=== PATIENT | female | born 1930 | race Caucasian/White ===

== ENCOUNTER 2017-10-03 17:08 | Inpatient (IN) | payer MEDICARE ==
[~2017-10-03] VITALS: Ht 162.6 cm; Wt 68.5 kg
[2017-10-03 18:00] VITALS: BP 121/50
[2017-10-03] MEDS ORDERED: OxyCODONE HCL 5 MG IR TABLET PO PRN (18:30)
[2017-10-03] MEDS ORDERED: TRIAMCINOLONE ACET 55 MCG/SPRAY 16.9 ML NASAL SPRAY NASAL PRN (18:30)
[2017-10-03] MEDS: HYDROCORTISONE 1% 30 GM OINTMENT TP SCH ×2 (21:00→21:51)
[2017-10-03] MEDS ORDERED: ATORVASTATIN CALCIUM 10 MG TABLET PO SCH (21:00)
[2017-10-03] MEDS: LATANOPROST 0.005% 2.5 ML OPHTHALMIC SOLUTION OU SCH (21:48)
[2017-10-03 21:49] LABS: GLUCOMETER DEV NAME(LOC) 2WR 1B; GLUCOSE,POINT OF CARE 103 MG/DL (70-110)
[2017-10-03] MEDS: DORZOLAMIDE HCL 2% 10 ML OPHTHALMIC SOLUTION OD SCH (21:49)
[2017-10-03] MEDS: ACETAMINOPHEN 500 MG TABLET PO SCH (21:49)
[2017-10-03] MEDS: GABAPENTIN 100 MG CAPSULE PO SCH (21:49)
[2017-10-03] MEDS: FAMOTIDINE 20 MG TABLET PO SCH (21:50)
[2017-10-03] MEDS: SENNA 187 MG TABLET PO SCH (21:50)
[2017-10-03] MEDS: CETIRIZINE HCL 10 MG TABLET PO SCH (21:50)
[2017-10-03] MEDS: ATORVASTATIN CALCIUM 10 MG TABLET PO SCH (21:50)
[2017-10-03] MEDS: DOCUSATE SODIUM 100 MG CAPSULE PO SCH (21:50)
[2017-10-03 22:53] LABS: GLUCOMETER DEV NAME(LOC) 2WR 2E; GLUCOSE,POINT OF CARE 135 MG/DL (70-110)
[2017-10-04 01:06] VITALS: BP 95/64
[2017-10-04] MEDS: OxyCODONE HCL 5 MG IR TABLET PO PRN ×3 (01:06→23:41)
[2017-10-04 01:26] LABS: APPEARANCE,URINE CLEAR (CLEAR); BILIRUBIN,URINE NEGATIVE (NEGATIVE); GLUCOSE, URINE (UA) NEGATIVE (NEGATIVE); KETONES,URINE NEGATIVE (NEGATIVE); LEUKOCYTE ESTERASE ,URINE TRACE (NEGATIVE); NITRATE,URINE NEGATIVE (NEGATIVE); OCCULT BLOOD,URINE NEGATIVE (NEGATIVE); PROTEIN,URINE NEGATIVE (NEGATIVE); UROBILINOGEN,URINE 0.2 mg/dL (<=1.0)
[2017-10-04 01:55] LABS: BACTERIA,URINE Rare /HPF (None Seen); RBC,URINE 0-2 /HPF (0-2); SQUAMOUS EPITHELIAL CELL,UR Few /LPF (None Seen)
[2017-10-04] MEDS ORDERED: OxyCODONE HCL 5 MG IR TABLET PO PRN ×2 (02:45→06:45)
[2017-10-04] MEDS ORDERED: DEXTROSE 50%-WATER 25 GM/50 ML SYRINGE IVP PRN (03:45)
[2017-10-04] MEDS: FUROSEMIDE 40 MG TABLET PO SCH ×2 (06:12→10:36)
[2017-10-04] MEDS: LEVOTHYROXINE SODIUM 88 MCG TABLET PO SCH (06:12)
[2017-10-04] MEDS: ACETAMINOPHEN 500 MG TABLET PO SCH ×3 (06:12→20:20)
[2017-10-04 06:24] LABS: GLUCOMETER DEV NAME(LOC) 2WR 2E; GLUCOSE,POINT OF CARE 87 MG/DL (70-110)
[2017-10-04 08:01] VITALS: BP 127/70
[2017-10-04 08:40] LABS: BASOPHILS % (AUTO) 0.4 % (0.0-2.0); EOSINOPHILS % (AUTO) 1.3 % (1.0-6.0); HEMATOCRIT 27.3 % (36-46); HEMOGLOBIN 9.2 g/dL (12.0-16.0); LYMPHOCYTES # (AUTO) 2.6 K/uL (1.0-4.8); MEAN CORPUSCULAR HEMOGLOBIN 32.8 pg (26.0-34.0); MEAN CORPUSCULAR HGB CONC 33.8 G/dL (31.0-37.0); MEAN CORPUSCULAR VOLUME 97 fL (80-100); MONOCYTES % (AUTO) 11.5 % (2.0-9.0); NEUTROPHILS # (AUTO) 4.9 K/uL (1.8-7.7); NEUTROPHILS % (AUTO) 56.8 % (40.0-70.0); PLATELET COUNT (AUTO) 226 K/uL (150-450); RED BLOOD CELL COUNT(AUTO) 2.82 MIL/uL (4.00-5.20); RED CELL DISTRIBUTION WIDTH 12.7 % (11.5-14.5)
[2017-10-04] MEDS ORDERED: RIVAROXABAN 10 MG TABLET PO SCH ×2 (09:00→17:00)
[2017-10-04 09:11] LABS: ALBUMIN 2.4 g/dL (3.4-5.0); BILIRUBIN,TOTAL 0.5 mg/dL (0.1-1.0); CALCIUM, TOTAL 8.4 mg/dL (8.8-10.5); CREATININE 1.27 mg/dL (0.60-1.30); POTASSIUM 4.1 mmol/L (3.5-5.1); TOTAL PROTEIN, SERUM 5.7 g/dL (6.4-8.2)
[2017-10-04] MEDS: DOCUSATE SODIUM 100 MG CAPSULE PO SCH ×2 (09:37→20:21)
[2017-10-04] MEDS: OMEGA-3/DHA/EPA/FISH OIL 1,000 MG CAPSULE PO SCH (09:37)
[2017-10-04] MEDS: MULTIVITAMINS WITH MINERALS, THERAPEUTIC TABLET PO SCH (09:37)
[2017-10-04] MEDS: POLYETHYLENE GLYCOL 3350 17 GM PACKET PO SCH (09:37)
[2017-10-04] MEDS: SPIRONOLACTONE 25 MG TABLET PO SCH (09:38)
[2017-10-04] MEDS: CARVEDILOL 6.25 MG TABLET PO SCH ×2 (09:38→16:57)
[2017-10-04] MEDS: DORZOLAMIDE HCL 2% 10 ML OPHTHALMIC SOLUTION OD SCH ×2 (09:38→20:20)
[2017-10-04] MEDS: RIVAROXABAN 10 MG PO SCH (10:36)
[2017-10-04] MEDS ORDERED: FUROSEMIDE 40 MG TABLET PO SCH (11:00)
[2017-10-04 12:04] LABS: GLUCOMETER DEV NAME(LOC) 2WR 1B; GLUCOSE,POINT OF CARE 169 MG/DL (70-110)
[2017-10-04] MEDS: INSULIN LISPRO 100 UNITS/ML SQ PRN ×2 (12:35→22:11)
[2017-10-04 16:17] VITALS: BP 119/70
[2017-10-04] MEDS: LATANOPROST 0.005% 2.5 ML OPHTHALMIC SOLUTION OU SCH (20:20)
[2017-10-04] MEDS: ATORVASTATIN CALCIUM 10 MG TABLET PO SCH (20:21)
[2017-10-04] MEDS: GABAPENTIN 100 MG CAPSULE PO SCH (20:21)
[2017-10-04] MEDS: CETIRIZINE HCL 10 MG TABLET PO SCH (20:21)
[2017-10-04] MEDS: SENNA 187 MG TABLET PO SCH (20:21)
[2017-10-04] MEDS: FAMOTIDINE 20 MG TABLET PO SCH (20:21)
[2017-10-04] MEDS: HYDROCORTISONE 1% 30 GM OINTMENT TP SCH (20:22)
[2017-10-04 22:28] LABS: GLUCOMETER DEV NAME(LOC) 2WR 1B; GLUCOSE,POINT OF CARE 176 MG/DL (70-110)
[2017-10-04 22:28] LABS: GLUCOMETER DEV NAME(LOC) 2WR 1B; GLUCOSE,POINT OF CARE 95 MG/DL (70-110)
[2017-10-04 23:41] VITALS: BP 110/63
[2017-10-05] MEDS: DOCUSATE SODIUM 283 MG/5 ML MINI-ENEMA PR PRN (05:28)
[2017-10-05] MEDS: ACETAMINOPHEN 500 MG TABLET PO SCH ×3 (05:33→20:50)
[2017-10-05] MEDS: FUROSEMIDE 40 MG TABLET PO SCH ×2 (05:33→11:40)
[2017-10-05] MEDS: LEVOTHYROXINE SODIUM 88 MCG TABLET PO SCH (05:33)
[2017-10-05 05:59] LABS: GLUCOMETER DEV NAME(LOC) 2WR 1B; GLUCOSE,POINT OF CARE 94 MG/DL (70-110)
[2017-10-05] MEDS: RIVAROXABAN 10 MG PO SCH (08:40)
[2017-10-05] MEDS: OMEGA-3/DHA/EPA/FISH OIL 1,000 MG CAPSULE PO SCH (08:40)
[2017-10-05] MEDS: DOCUSATE SODIUM 100 MG CAPSULE PO SCH ×2 (08:40→20:51)
[2017-10-05] MEDS: SPIRONOLACTONE 25 MG TABLET PO SCH (08:40)
[2017-10-05] MEDS: MULTIVITAMINS WITH MINERALS, THERAPEUTIC TABLET PO SCH (08:41)
[2017-10-05] MEDS: DORZOLAMIDE HCL 2% 10 ML OPHTHALMIC SOLUTION OD SCH ×2 (08:41→20:49)
[2017-10-05] MEDS: CARVEDILOL 6.25 MG TABLET PO SCH ×2 (08:41→17:15)
[2017-10-05] MEDS: POLYETHYLENE GLYCOL 3350 17 GM PACKET PO SCH (08:41)
[2017-10-05 08:47] VITALS: BP 123/47
[2017-10-05] MEDS: CALCIUM CIT/VITAMIN D3 200 MG-250 UNITS TABLET PO SCH ×2 (11:40→20:51)
[2017-10-05 11:41] VITALS: BP 106/45
[2017-10-05] MEDS: OxyCODONE HCL 5 MG IR TABLET PO PRN (11:41)
[2017-10-05 12:24] LABS: GLUCOMETER DEV NAME(LOC) 2WR 2E; GLUCOSE,POINT OF CARE 172 MG/DL (70-110)
[2017-10-05] MEDS: INSULIN LISPRO 100 UNITS/ML SQ PRN ×2 (14:27→21:29)
[2017-10-05 15:10] VITALS: BP 115/60
[2017-10-05 16:50] VITALS: BP 106/50
[2017-10-05] MEDS: LATANOPROST 0.005% 2.5 ML OPHTHALMIC SOLUTION OU SCH (20:49)
[2017-10-05] MEDS: ATORVASTATIN CALCIUM 10 MG TABLET PO SCH (20:50)
[2017-10-05] MEDS: GABAPENTIN 100 MG CAPSULE PO SCH (20:50)
[2017-10-05] MEDS: MELATONIN 3 MG TABLET PO SCH (20:50)
[2017-10-05] MEDS: CETIRIZINE HCL 10 MG TABLET PO SCH (20:51)
[2017-10-05] MEDS: SENNA 187 MG TABLET PO SCH (20:51)
[2017-10-05] MEDS: FAMOTIDINE 20 MG TABLET PO SCH (20:51)
[2017-10-05] MEDS: HYDROCORTISONE 1% 30 GM OINTMENT TP SCH (20:52)
[2017-10-05 22:28] LABS: GLUCOMETER DEV NAME(LOC) 2WR 1B; GLUCOSE,POINT OF CARE 119 MG/DL (70-110)
[2017-10-05 22:28] LABS: GLUCOMETER DEV NAME(LOC) 2WR 1B; GLUCOSE,POINT OF CARE 160 MG/DL (70-110)
[2017-10-05 23:55] VITALS: BP 129/71
[2017-10-06 06:23] VITALS: BP 133/62
[2017-10-06] MEDS: ACETAMINOPHEN 500 MG TABLET PO SCH ×3 (06:23→20:39)
[2017-10-06] MEDS: FUROSEMIDE 40 MG TABLET PO SCH ×2 (06:23→11:43)
[2017-10-06] MEDS: LEVOTHYROXINE SODIUM 88 MCG TABLET PO SCH (06:23)
[2017-10-06] MEDS: DOCUSATE SODIUM 283 MG/5 ML MINI-ENEMA PR PRN (06:23)
[2017-10-06 06:35] LABS: GLUCOMETER DEV NAME(LOC) 2WR 1B; GLUCOSE,POINT OF CARE 95 MG/DL (70-110)
[2017-10-06 07:00] VITALS: BP 108/65
[2017-10-06] MEDS: RIVAROXABAN 10 MG PO SCH (08:40)
[2017-10-06] MEDS: POLYETHYLENE GLYCOL 3350 17 GM PACKET PO SCH (08:41)
[2017-10-06] MEDS: CALCIUM CIT/VITAMIN D3 200 MG-250 UNITS TABLET PO SCH ×2 (08:41→20:44)
[2017-10-06] MEDS: DORZOLAMIDE HCL 2% 10 ML OPHTHALMIC SOLUTION OD SCH ×2 (08:41→20:38)
[2017-10-06] MEDS: DOCUSATE SODIUM 100 MG CAPSULE PO SCH ×3 (08:41→20:46)
[2017-10-06] MEDS: OMEGA-3/DHA/EPA/FISH OIL 1,000 MG CAPSULE PO SCH (08:41)
[2017-10-06] MEDS: MULTIVITAMINS WITH MINERALS, THERAPEUTIC TABLET PO SCH (08:41)
[2017-10-06 08:44] VITALS: BP 113/44
[2017-10-06] MEDS: CARVEDILOL 6.25 MG TABLET PO SCH ×2 (08:44→17:43)
[2017-10-06] MEDS: SPIRONOLACTONE 25 MG TABLET PO SCH (08:44)
[2017-10-06 13:13] LABS: GLUCOMETER DEV NAME(LOC) 2WR 1B; GLUCOSE,POINT OF CARE 135 MG/DL (70-110)
[2017-10-06 16:26] VITALS: BP 106/56
[2017-10-06 17:52] VITALS: BP 108/56
[2017-10-06 19:33] LABS: GLUCOMETER DEV NAME(LOC) 2WR 2E; GLUCOSE,POINT OF CARE 100 MG/DL (70-110)
[2017-10-06] MEDS: GABAPENTIN 100 MG CAPSULE PO SCH (20:38)
[2017-10-06] MEDS: MELATONIN 3 MG TABLET PO SCH (20:38)
[2017-10-06] MEDS: LATANOPROST 0.005% 2.5 ML OPHTHALMIC SOLUTION OU SCH (20:38)
[2017-10-06] MEDS: ATORVASTATIN CALCIUM 10 MG TABLET PO SCH (20:39)
[2017-10-06] MEDS: CETIRIZINE HCL 10 MG TABLET PO SCH (20:39)
[2017-10-06] MEDS: SENNA 187 MG TABLET PO SCH ×2 (20:39→20:46)
[2017-10-06] MEDS: FAMOTIDINE 20 MG TABLET PO SCH (20:40)
[2017-10-06] MEDS: HYDROCORTISONE 1% 30 GM OINTMENT TP SCH (20:46)
[2017-10-06] MEDS: INSULIN LISPRO 100 UNITS/ML SQ PRN (20:58)
[2017-10-06 21:03] LABS: GLUCOMETER DEV NAME(LOC) 2WR 1B; GLUCOSE,POINT OF CARE 169 MG/DL (70-110)
[2017-10-07] VITALS (7 sets, daily range): BP systolic 101–124; BP diastolic 45–73
[2017-10-07] MEDS: OxyCODONE HCL 5 MG IR TABLET PO PRN ×3 (03:15→21:41)
[2017-10-07] MEDS: FUROSEMIDE 40 MG TABLET PO SCH ×3 (06:00→12:15)
[2017-10-07] MEDS: ACETAMINOPHEN 500 MG TABLET PO SCH ×3 (06:32→21:00)
[2017-10-07] MEDS: LEVOTHYROXINE SODIUM 88 MCG TABLET PO SCH (06:32)
[2017-10-07 06:44] LABS: GLUCOMETER DEV NAME(LOC) 2WR 1B; GLUCOSE,POINT OF CARE 103 MG/DL (70-110)
[2017-10-07] MEDS: POLYETHYLENE GLYCOL 3350 17 GM PACKET PO SCH (08:39)
[2017-10-07] MEDS: DORZOLAMIDE HCL 2% 10 ML OPHTHALMIC SOLUTION OD SCH ×2 (08:39→21:39)
[2017-10-07] MEDS: RIVAROXABAN 10 MG PO SCH (08:39)
[2017-10-07] MEDS: OMEGA-3/DHA/EPA/FISH OIL 1,000 MG CAPSULE PO SCH (08:39)
[2017-10-07] MEDS: CARVEDILOL 6.25 MG TABLET PO SCH ×2 (08:40→17:20)
[2017-10-07] MEDS: SPIRONOLACTONE 25 MG TABLET PO SCH (08:40)
[2017-10-07] MEDS: MULTIVITAMINS WITH MINERALS, THERAPEUTIC TABLET PO SCH (08:40)
[2017-10-07] MEDS: DOCUSATE SODIUM 100 MG CAPSULE PO SCH ×2 (08:40→21:40)
[2017-10-07] MEDS: CALCIUM CIT/VITAMIN D3 200 MG-250 UNITS TABLET PO SCH ×2 (08:42→21:40)
[2017-10-07 14:13] LABS: GLUCOMETER DEV NAME(LOC) 2WR 1B; GLUCOSE,POINT OF CARE 130 MG/DL (70-110)
[2017-10-07 17:58] LABS: GLUCOMETER DEV NAME(LOC) 2WR 2E; GLUCOSE,POINT OF CARE 121 MG/DL (70-110)
[2017-10-07] MEDS: HYDROCORTISONE 1% 30 GM OINTMENT TP SCH (21:00)
[2017-10-07] MEDS: LATANOPROST 0.005% 2.5 ML OPHTHALMIC SOLUTION OU SCH (21:39)
[2017-10-07] MEDS: FAMOTIDINE 20 MG TABLET PO SCH (21:40)
[2017-10-07] MEDS: SENNA 187 MG TABLET PO SCH (21:40)
[2017-10-07] MEDS: ATORVASTATIN CALCIUM 10 MG TABLET PO SCH (21:40)
[2017-10-07] MEDS: GABAPENTIN 100 MG CAPSULE PO SCH (21:40)
[2017-10-07] MEDS: CETIRIZINE HCL 10 MG TABLET PO SCH (21:40)
[2017-10-07] MEDS: MELATONIN 3 MG TABLET PO SCH (21:40)
[2017-10-07 23:08] LABS: GLUCOMETER DEV NAME(LOC) 2WR 2E; GLUCOSE,POINT OF CARE 127 MG/DL (70-110)
[2017-10-08 00:13] VITALS: BP 120/58
[2017-10-08] MEDS: ACETAMINOPHEN 500 MG TABLET PO SCH ×3 (05:48→20:20)
[2017-10-08] MEDS: LEVOTHYROXINE SODIUM 88 MCG TABLET PO SCH (05:48)
[2017-10-08] MEDS: FUROSEMIDE 40 MG TABLET PO SCH ×2 (05:48→12:26)
[2017-10-08 05:49] LABS: GLUCOMETER DEV NAME(LOC) 2WR 2E; GLUCOSE,POINT OF CARE 99 MG/DL (70-110)
[2017-10-08 08:20] VITALS: BP 116/68
[2017-10-08] MEDS: RIVAROXABAN 10 MG PO SCH (08:29)
[2017-10-08] MEDS: CALCIUM CIT/VITAMIN D3 200 MG-250 UNITS TABLET PO SCH ×2 (08:30→20:20)
[2017-10-08] MEDS: DOCUSATE SODIUM 100 MG CAPSULE PO SCH (08:30)
[2017-10-08] MEDS: OMEGA-3/DHA/EPA/FISH OIL 1,000 MG CAPSULE PO SCH (08:30)
[2017-10-08] MEDS: POLYETHYLENE GLYCOL 3350 17 GM PACKET PO SCH (08:31)
[2017-10-08] MEDS: CARVEDILOL 6.25 MG TABLET PO SCH ×2 (08:31→17:23)
[2017-10-08] MEDS: SPIRONOLACTONE 25 MG TABLET PO SCH (08:31)
[2017-10-08] MEDS: MULTIVITAMINS WITH MINERALS, THERAPEUTIC TABLET PO SCH (08:31)
[2017-10-08] MEDS: DORZOLAMIDE HCL 2% 10 ML OPHTHALMIC SOLUTION OD SCH ×2 (08:32→20:20)
[2017-10-08 15:21] VITALS: BP 117/41
[2017-10-08 17:21] VITALS: BP 110/54
[2017-10-08 18:19] LABS: GLUCOMETER DEV NAME(LOC) 2WR 2E; GLUCOSE,POINT OF CARE 124 MG/DL (70-110)
[2017-10-08] MEDS: OxyCODONE HCL 5 MG IR TABLET PO PRN (18:19)
[2017-10-08 20:15] VITALS: BP 123/53
[2017-10-08] MEDS: GABAPENTIN 100 MG CAPSULE PO SCH (20:20)
[2017-10-08] MEDS: CETIRIZINE HCL 10 MG TABLET PO SCH (20:20)
[2017-10-08] MEDS: ATORVASTATIN CALCIUM 10 MG TABLET PO SCH (20:20)
[2017-10-08] MEDS: FAMOTIDINE 20 MG TABLET PO SCH (20:20)
[2017-10-08] MEDS: LATANOPROST 0.005% 2.5 ML OPHTHALMIC SOLUTION OU SCH (20:20)
[2017-10-08] MEDS: MAGNESIUM HYDROXIDE SUSPENSION 30 ML UDCUP PO PRN (20:21)
[2017-10-08] MEDS: DOCUSATE SODIUM 250 MG CAPSULE PO SCH (20:21)
[2017-10-08] MEDS: MELATONIN 3 MG TABLET PO SCH (20:21)
[2017-10-08] MEDS: HYDROCORTISONE 1% 30 GM OINTMENT TP SCH (20:27)
[2017-10-08] MEDS: SENNA 187 MG TABLET PO SCH (20:28)
[2017-10-09 04:11] VITALS: BP 124/49
[2017-10-09] MEDS: OxyCODONE HCL 5 MG IR TABLET PO PRN ×5 (04:11→21:06)
[2017-10-09] MEDS: FUROSEMIDE 40 MG TABLET PO SCH ×2 (05:46→13:21)
[2017-10-09] MEDS: LEVOTHYROXINE SODIUM 88 MCG TABLET PO SCH (05:46)
[2017-10-09] MEDS: ACETAMINOPHEN 500 MG TABLET PO SCH ×3 (05:46→21:00)
[2017-10-09 06:29] LABS: GLUCOMETER DEV NAME(LOC) 2WR 2E; GLUCOSE,POINT OF CARE 115 MG/DL (70-110)
[2017-10-09 07:48] VITALS: BP 114/56
[2017-10-09] MEDS: DOCUSATE SODIUM 250 MG CAPSULE PO SCH ×2 (08:43→21:05)
[2017-10-09] MEDS: RIVAROXABAN 10 MG PO SCH (08:44)
[2017-10-09] MEDS: OMEGA-3/DHA/EPA/FISH OIL 1,000 MG CAPSULE PO SCH (08:44)
[2017-10-09] MEDS: MULTIVITAMINS WITH MINERALS, THERAPEUTIC TABLET PO SCH (08:44)
[2017-10-09] MEDS: CARVEDILOL 6.25 MG TABLET PO SCH ×2 (08:44→16:39)
[2017-10-09] MEDS: SPIRONOLACTONE 25 MG TABLET PO SCH (08:44)
[2017-10-09] MEDS: CALCIUM CIT/VITAMIN D3 200 MG-250 UNITS TABLET PO SCH ×2 (08:44→21:08)
[2017-10-09] MEDS: DORZOLAMIDE HCL 2% 10 ML OPHTHALMIC SOLUTION OD SCH ×2 (08:45→21:06)
[2017-10-09] MEDS: POLYETHYLENE GLYCOL 3350 17 GM PACKET PO SCH (09:00)
[2017-10-09 13:18] VITALS: BP 116/55
[2017-10-09 16:09] VITALS: BP 111/60
[2017-10-09 16:43] VITALS: BP 126/55
[2017-10-09] MEDS ORDERED: ACETAMINOPHEN 500 MG TABLET PO ONE (16:45)
[2017-10-09 19:04] LABS: GLUCOMETER DEV NAME(LOC) 2WR 1B; GLUCOSE,POINT OF CARE 137 MG/DL (70-110)
[2017-10-09] MEDS: HYDROCORTISONE 1% 30 GM OINTMENT TP SCH (21:00)
[2017-10-09 21:01] VITALS: BP 127/57
[2017-10-09] MEDS: GABAPENTIN 100 MG CAPSULE PO SCH (21:05)
[2017-10-09] MEDS: MELATONIN 3 MG TABLET PO SCH (21:05)
[2017-10-09] MEDS: LATANOPROST 0.005% 2.5 ML OPHTHALMIC SOLUTION OU SCH (21:05)
[2017-10-09] MEDS: ATORVASTATIN CALCIUM 10 MG TABLET PO SCH (21:05)
[2017-10-09] MEDS: FAMOTIDINE 20 MG TABLET PO SCH (21:05)
[2017-10-09] MEDS: SENNA 187 MG TABLET PO SCH (21:06)
[2017-10-09] MEDS: CETIRIZINE HCL 10 MG TABLET PO SCH (21:06)
[2017-10-10 02:00] VITALS: BP 119/51
[2017-10-10] MEDS: OxyCODONE HCL 5 MG IR TABLET PO PRN ×5 (02:19→20:58)
[2017-10-10] MEDS: ACETAMINOPHEN 500 MG TABLET PO SCH ×3 (05:51→22:08)
[2017-10-10] MEDS: LEVOTHYROXINE SODIUM 88 MCG TABLET PO SCH (05:51)
[2017-10-10] MEDS: FUROSEMIDE 40 MG TABLET PO SCH ×2 (05:51→12:20)
[2017-10-10 06:14] LABS: GLUCOMETER DEV NAME(LOC) 2WR 2E; GLUCOSE,POINT OF CARE 121 MG/DL (70-110)
[2017-10-10 08:31] VITALS: BP 108/54
[2017-10-10] MEDS: MULTIVITAMINS WITH MINERALS, THERAPEUTIC TABLET PO SCH (08:32)
[2017-10-10] MEDS: POLYETHYLENE GLYCOL 3350 17 GM PACKET PO SCH (08:32)
[2017-10-10] MEDS: CALCIUM CIT/VITAMIN D3 200 MG-250 UNITS TABLET PO SCH ×2 (08:33→20:53)
[2017-10-10] MEDS: CARVEDILOL 6.25 MG TABLET PO SCH ×2 (08:33→17:32)
[2017-10-10] MEDS: DOCUSATE SODIUM 250 MG CAPSULE PO SCH ×2 (08:33→20:53)
[2017-10-10] MEDS: SPIRONOLACTONE 25 MG TABLET PO SCH (08:35)
[2017-10-10] MEDS: RIVAROXABAN 10 MG PO SCH (08:36)
[2017-10-10] MEDS: DORZOLAMIDE HCL 2% 10 ML OPHTHALMIC SOLUTION OD SCH ×2 (08:37→20:52)
[2017-10-10] MEDS: OMEGA-3/DHA/EPA/FISH OIL 1,000 MG CAPSULE PO SCH (08:37)
[2017-10-10 15:25] VITALS: BP 132/52
[2017-10-10 17:29] VITALS: BP 114/44
[2017-10-10 18:49] LABS: GLUCOMETER DEV NAME(LOC) 2WR 1B; GLUCOSE,POINT OF CARE 112 MG/DL (70-110)
[2017-10-10 20:48] VITALS: BP 108/54
[2017-10-10] MEDS: GABAPENTIN 100 MG CAPSULE PO SCH (20:53)
[2017-10-10] MEDS: SENNA 187 MG TABLET PO SCH (20:53)
[2017-10-10] MEDS: CETIRIZINE HCL 10 MG TABLET PO SCH (20:53)
[2017-10-10] MEDS: FAMOTIDINE 20 MG TABLET PO SCH (20:53)
[2017-10-10] MEDS: LATANOPROST 0.005% 2.5 ML OPHTHALMIC SOLUTION OU SCH (20:53)
[2017-10-10] MEDS: ATORVASTATIN CALCIUM 10 MG TABLET PO SCH (20:53)
[2017-10-10] MEDS: MELATONIN 3 MG TABLET PO SCH (20:53)
[2017-10-10] MEDS: HYDROCORTISONE 1% 30 GM OINTMENT TP SCH (20:54)
[2017-10-10] MEDS: MAGNESIUM HYDROXIDE SUSPENSION 30 ML UDCUP PO PRN (20:54)
[2017-10-11 05:50] VITALS: BP 115/59
[2017-10-11] MEDS: ACETAMINOPHEN 500 MG TABLET PO SCH ×3 (06:02→20:47)
[2017-10-11] MEDS: LEVOTHYROXINE SODIUM 88 MCG TABLET PO SCH (06:02)
[2017-10-11] MEDS: FUROSEMIDE 40 MG TABLET PO SCH ×2 (06:02→12:53)
[2017-10-11 06:34] LABS: GLUCOMETER DEV NAME(LOC) 2WR 2E; GLUCOSE,POINT OF CARE 100 MG/DL (70-110)
[2017-10-11 07:19] VITALS: BP 111/50
[2017-10-11] MEDS: DOCUSATE SODIUM 250 MG CAPSULE PO SCH ×2 (08:07→20:42)
[2017-10-11] MEDS: MULTIVITAMINS WITH MINERALS, THERAPEUTIC TABLET PO SCH (08:07)
[2017-10-11] MEDS: POLYETHYLENE GLYCOL 3350 17 GM PACKET PO SCH (08:07)
[2017-10-11] MEDS: OxyCODONE HCL 5 MG IR TABLET PO PRN ×3 (08:08→16:40)
[2017-10-11] MEDS: CALCIUM CIT/VITAMIN D3 200 MG-250 UNITS TABLET PO SCH ×2 (08:08→20:43)
[2017-10-11] MEDS: RIVAROXABAN 10 MG PO SCH (08:08)
[2017-10-11] MEDS: CARVEDILOL 6.25 MG TABLET PO SCH ×2 (08:08→17:04)
[2017-10-11] MEDS: DORZOLAMIDE HCL 2% 10 ML OPHTHALMIC SOLUTION OD SCH ×2 (08:09→20:45)
[2017-10-11] MEDS: OMEGA-3/DHA/EPA/FISH OIL 1,000 MG CAPSULE PO SCH (08:09)
[2017-10-11] MEDS: SPIRONOLACTONE 25 MG TABLET PO SCH (08:09)
[2017-10-11 12:53] VITALS: BP 104/59
[2017-10-11 15:37] VITALS: BP 129/73
[2017-10-11] MEDS: FAMOTIDINE 20 MG TABLET PO SCH ×2 (16:32→20:46)
[2017-10-11 17:43] LABS: GLUCOMETER DEV NAME(LOC) 2WR 2E; GLUCOSE,POINT OF CARE 124 MG/DL (70-110)
[2017-10-11] MEDS: SENNA 187 MG TABLET PO SCH (20:42)
[2017-10-11] MEDS: ATORVASTATIN CALCIUM 10 MG TABLET PO SCH (20:42)
[2017-10-11] MEDS: GABAPENTIN 100 MG CAPSULE PO SCH (20:43)
[2017-10-11] MEDS: CETIRIZINE HCL 10 MG TABLET PO SCH (20:43)
[2017-10-11] MEDS: HYDROCORTISONE 1% 30 GM OINTMENT TP SCH (20:44)
[2017-10-11] MEDS: LATANOPROST 0.005% 2.5 ML OPHTHALMIC SOLUTION OU SCH (20:44)
[2017-10-11] MEDS: MELATONIN 3 MG TABLET PO SCH (20:46)
[2017-10-12 01:17] VITALS: BP 118/60
[2017-10-12] MEDS: OxyCODONE HCL 5 MG IR TABLET PO PRN ×4 (01:17→23:40)
[2017-10-12] MEDS: FAMOTIDINE 20 MG TABLET PO SCH ×3 (06:04→20:07)
[2017-10-12] MEDS: FUROSEMIDE 40 MG TABLET PO SCH ×2 (06:04→13:27)
[2017-10-12] MEDS: ACETAMINOPHEN 500 MG TABLET PO SCH ×3 (06:06→20:08)
[2017-10-12] MEDS: LEVOTHYROXINE SODIUM 88 MCG TABLET PO SCH (06:06)
[2017-10-12 06:19] LABS: GLUCOMETER DEV NAME(LOC) 2WR 1B; GLUCOSE,POINT OF CARE 108 MG/DL (70-110)
[2017-10-12 07:05] LABS: BASOPHILS % (AUTO) 0.8 % (0.0-2.0); EOSINOPHILS % (AUTO) 0.8 % (1.0-6.0); HEMATOCRIT 25.2 % (36-46); HEMOGLOBIN 8.5 g/dL (12.0-16.0); LYMPHOCYTES # (AUTO) 3.5 K/uL (1.0-4.8); LYMPHOCYTES % (AUTO) 36.4 % (22.0-44.0); MEAN CORPUSCULAR HEMOGLOBIN 32.8 pg (26.0-34.0); MEAN CORPUSCULAR HGB CONC 33.6 G/dL (31.0-37.0); MEAN CORPUSCULAR VOLUME 98 fL (80-100); MONOCYTES # (AUTO) 0.9 K/uL (0.1-1.0); MONOCYTES % (AUTO) 9.7 % (2.0-9.0); NEUTROPHILS % (AUTO) 52.3 % (40.0-70.0); PLATELET COUNT (AUTO) 448 K/uL (150-450); RED BLOOD CELL COUNT(AUTO) 2.59 MIL/uL (4.00-5.20); RED CELL DISTRIBUTION WIDTH 13.3 % (11.5-14.5)
[2017-10-12] MEDS: CARVEDILOL 6.25 MG TABLET PO SCH ×2 (07:30→17:06)
[2017-10-12] MEDS: POLYETHYLENE GLYCOL 3350 17 GM PACKET PO SCH (08:34)
[2017-10-12 08:36] VITALS: BP 101/52
[2017-10-12] MEDS: DOCUSATE SODIUM 250 MG CAPSULE PO SCH ×2 (08:36→20:06)
[2017-10-12] MEDS: MULTIVITAMINS WITH MINERALS, THERAPEUTIC TABLET PO SCH (08:36)
[2017-10-12] MEDS: CALCIUM CIT/VITAMIN D3 200 MG-250 UNITS TABLET PO SCH ×2 (08:36→20:08)
[2017-10-12] MEDS: RIVAROXABAN 10 MG PO SCH (08:36)
[2017-10-12] MEDS: OMEGA-3/DHA/EPA/FISH OIL 1,000 MG CAPSULE PO SCH (08:37)
[2017-10-12] MEDS: SPIRONOLACTONE 25 MG TABLET PO SCH (08:38)
[2017-10-12] MEDS: DORZOLAMIDE HCL 2% 10 ML OPHTHALMIC SOLUTION OD SCH ×2 (08:41→20:07)
[2017-10-12 13:27] VITALS: BP 124/48
[2017-10-12 16:13] VITALS: BP 142/75
[2017-10-12] MEDS: HYDROCORTISONE 1% 30 GM OINTMENT TP SCH (20:06)
[2017-10-12] MEDS: SENNA 187 MG TABLET PO SCH (20:06)
[2017-10-12] MEDS: LATANOPROST 0.005% 2.5 ML OPHTHALMIC SOLUTION OU SCH (20:07)
[2017-10-12] MEDS: CETIRIZINE HCL 10 MG TABLET PO SCH (20:07)
[2017-10-12] MEDS: GABAPENTIN 100 MG CAPSULE PO SCH (20:08)
[2017-10-12] MEDS: ATORVASTATIN CALCIUM 10 MG TABLET PO SCH (20:08)
[2017-10-12] MEDS: MELATONIN 3 MG TABLET PO SCH (20:08)
[2017-10-12 21:24] LABS: GLUCOMETER DEV NAME(LOC) 2WR 1B; GLUCOSE,POINT OF CARE 120 MG/DL (70-110)
[2017-10-12 23:40] VITALS: BP 127/67
[2017-10-13] MEDS: ACETAMINOPHEN 500 MG TABLET PO SCH ×3 (05:45→20:28)
[2017-10-13] MEDS: LEVOTHYROXINE SODIUM 88 MCG TABLET PO SCH (05:45)
[2017-10-13] MEDS: FAMOTIDINE 20 MG TABLET PO SCH ×3 (05:45→20:28)
[2017-10-13] MEDS: FUROSEMIDE 40 MG TABLET PO SCH ×2 (05:46→11:08)
[2017-10-13 05:49] LABS: GLUCOMETER DEV NAME(LOC) 2WR 1B; GLUCOSE,POINT OF CARE 101 MG/DL (70-110)
[2017-10-13] MEDS ORDERED: ACET-66 PO (07:09)
[2017-10-13] MEDS ORDERED: ATOR10TA84 PO (07:14)
[2017-10-13] MEDS ORDERED: CALC-840 PO (07:14)
[2017-10-13] MEDS ORDERED: CARV6 PO (07:18)
[2017-10-13] MEDS ORDERED: DOCU250C91 PO (07:18)
[2017-10-13] MEDS ORDERED: CETI-290 PO (07:18)
[2017-10-13] MEDS ORDERED: DORZ210OS OD (07:19)
[2017-10-13] MEDS ORDERED: FURO40 PO (07:22)
[2017-10-13] MEDS ORDERED: FAMO20 PO (07:22)
[2017-10-13] MEDS ORDERED: GABA-529 PO (07:26)
[2017-10-13] MEDS ORDERED: LATA2.5D2 OU (07:26)
[2017-10-13] MEDS ORDERED: LEVO25TA9 PO (07:28)
[2017-10-13] MEDS ORDERED: MELA3TAB66 PO (07:31)
[2017-10-13] MEDS ORDERED: MULT-1239 PO (07:33)
[2017-10-13] MEDS ORDERED: FISH1CAP50 PO (07:41)
[2017-10-13] MEDS ORDERED: OXYC5 PO ×2 (07:41)
[2017-10-13] MEDS ORDERED: SPIR25 PO (07:44)
[2017-10-13] MEDS ORDERED: MIRALAX PO (07:44)
[2017-10-13 09:07] VITALS: BP 107/64
[2017-10-13] MEDS: SPIRONOLACTONE 25 MG TABLET PO SCH (09:07)
[2017-10-13] MEDS: DOCUSATE SODIUM 250 MG CAPSULE PO SCH ×2 (09:07→20:28)
[2017-10-13] MEDS: RIVAROXABAN 10 MG PO SCH (09:07)
[2017-10-13] MEDS: OxyCODONE HCL 5 MG IR TABLET PO PRN ×2 (09:07→16:46)
[2017-10-13] MEDS: CARVEDILOL 6.25 MG TABLET PO SCH ×2 (09:07→16:45)
[2017-10-13] MEDS: MULTIVITAMINS WITH MINERALS, THERAPEUTIC TABLET PO SCH (09:07)
[2017-10-13] MEDS: OMEGA-3/DHA/EPA/FISH OIL 1,000 MG CAPSULE PO SCH (09:07)
[2017-10-13] MEDS: CALCIUM CIT/VITAMIN D3 200 MG-250 UNITS TABLET PO SCH ×2 (09:07→20:28)
[2017-10-13] MEDS: DORZOLAMIDE HCL 2% 10 ML OPHTHALMIC SOLUTION OD SCH ×2 (09:08→20:29)
[2017-10-13] MEDS: POLYETHYLENE GLYCOL 3350 17 GM PACKET PO SCH (09:08)
[2017-10-13 11:05] VITALS: BP 116/61
[2017-10-13 15:28] VITALS: BP 115/61
[2017-10-13 16:40] VITALS: BP 107/53
[2017-10-13 17:53] LABS: GLUCOMETER DEV NAME(LOC) 2WR 2E; GLUCOSE,POINT OF CARE 131 MG/DL (70-110)
[2017-10-13 20:25] VITALS: BP 124/63
[2017-10-13] MEDS: GABAPENTIN 100 MG CAPSULE PO SCH (20:28)
[2017-10-13] MEDS: SENNA 187 MG TABLET PO SCH (20:28)
[2017-10-13] MEDS: CETIRIZINE HCL 10 MG TABLET PO SCH (20:28)
[2017-10-13] MEDS: MELATONIN 3 MG TABLET PO SCH (20:28)
[2017-10-13] MEDS: ATORVASTATIN CALCIUM 10 MG TABLET PO SCH (20:28)
[2017-10-13] MEDS: HYDROCORTISONE 1% 30 GM OINTMENT TP SCH (20:29)
[2017-10-13] MEDS: LATANOPROST 0.005% 2.5 ML OPHTHALMIC SOLUTION OU SCH (20:29)
[2017-10-14 00:58] VITALS: BP 115/72
[2017-10-14] MEDS: OxyCODONE HCL 5 MG IR TABLET PO PRN ×3 (00:58→17:03)
[2017-10-14] MEDS: ACETAMINOPHEN 500 MG TABLET PO SCH ×3 (06:09→21:15)
[2017-10-14] MEDS: FUROSEMIDE 40 MG TABLET PO SCH ×2 (06:09→11:22)
[2017-10-14] MEDS: FAMOTIDINE 20 MG TABLET PO SCH ×3 (06:09→21:15)
[2017-10-14] MEDS: LEVOTHYROXINE SODIUM 88 MCG TABLET PO SCH (06:14)
[2017-10-14 06:23] LABS: GLUCOMETER DEV NAME(LOC) 2WR 2E; GLUCOSE,POINT OF CARE 105 MG/DL (70-110)
[2017-10-14 08:00] VITALS: BP 125/53
[2017-10-14] MEDS: CALCIUM CIT/VITAMIN D3 200 MG-250 UNITS TABLET PO SCH ×2 (08:50→21:15)
[2017-10-14] MEDS: SPIRONOLACTONE 25 MG TABLET PO SCH (08:50)
[2017-10-14] MEDS: MULTIVITAMINS WITH MINERALS, THERAPEUTIC TABLET PO SCH (08:50)
[2017-10-14] MEDS: DOCUSATE SODIUM 250 MG CAPSULE PO SCH ×2 (08:50→21:15)
[2017-10-14] MEDS: CARVEDILOL 6.25 MG TABLET PO SCH ×2 (08:50→17:03)
[2017-10-14] MEDS: DORZOLAMIDE HCL 2% 10 ML OPHTHALMIC SOLUTION OD SCH ×2 (08:51→21:14)
[2017-10-14] MEDS: RIVAROXABAN 10 MG PO SCH (08:51)
[2017-10-14] MEDS: OMEGA-3/DHA/EPA/FISH OIL 1,000 MG CAPSULE PO SCH (08:51)
[2017-10-14] MEDS: POLYETHYLENE GLYCOL 3350 17 GM PACKET PO SCH (08:54)
[2017-10-14 11:20] VITALS: BP 106/52
[2017-10-14 15:12] VITALS: BP 110/64
[2017-10-14 16:59] VITALS: BP 117/63
[2017-10-14 17:54] LABS: GLUCOMETER DEV NAME(LOC) 2WR 1B; GLUCOSE,POINT OF CARE 116 MG/DL (70-110)
[2017-10-14] MEDS: HYDROCORTISONE 1% 30 GM OINTMENT TP SCH (21:00)
[2017-10-14 21:12] VITALS: BP 119/56
[2017-10-14] MEDS: LATANOPROST 0.005% 2.5 ML OPHTHALMIC SOLUTION OU SCH (21:14)
[2017-10-14] MEDS: SENNA 187 MG TABLET PO SCH (21:15)
[2017-10-14] MEDS: GABAPENTIN 100 MG CAPSULE PO SCH (21:15)
[2017-10-14] MEDS: MELATONIN 3 MG TABLET PO SCH (21:15)
[2017-10-14] MEDS: ATORVASTATIN CALCIUM 10 MG TABLET PO SCH (21:15)
[2017-10-14] MEDS: CETIRIZINE HCL 10 MG TABLET PO SCH (21:15)
[2017-10-15 03:45] VITALS: BP 117/54
[2017-10-15 06:00] VITALS: BP 117/69
[2017-10-15] MEDS: FUROSEMIDE 40 MG TABLET PO SCH ×2 (06:07→13:24)
[2017-10-15] MEDS: FAMOTIDINE 20 MG TABLET PO SCH ×3 (06:08→20:49)
[2017-10-15] MEDS: LEVOTHYROXINE SODIUM 88 MCG TABLET PO SCH (06:08)
[2017-10-15] MEDS: ACETAMINOPHEN 500 MG TABLET PO SCH ×3 (06:08→20:49)
[2017-10-15 06:19] LABS: GLUCOMETER DEV NAME(LOC) 2WR 1B; GLUCOSE,POINT OF CARE 102 MG/DL (70-110)
[2017-10-15 07:30] VITALS: BP 114/53
[2017-10-15] MEDS: DOCUSATE SODIUM 250 MG CAPSULE PO SCH ×2 (08:37→20:49)
[2017-10-15] MEDS: CALCIUM CIT/VITAMIN D3 200 MG-250 UNITS TABLET PO SCH ×2 (08:37→20:50)
[2017-10-15] MEDS: CARVEDILOL 6.25 MG TABLET PO SCH ×2 (08:38→17:11)
[2017-10-15] MEDS: MULTIVITAMINS WITH MINERALS, THERAPEUTIC TABLET PO SCH (08:38)
[2017-10-15] MEDS: SPIRONOLACTONE 25 MG TABLET PO SCH (08:39)
[2017-10-15] MEDS: OMEGA-3/DHA/EPA/FISH OIL 1,000 MG CAPSULE PO SCH (08:39)
[2017-10-15] MEDS: RIVAROXABAN 10 MG PO SCH (08:39)
[2017-10-15] MEDS: DORZOLAMIDE HCL 2% 10 ML OPHTHALMIC SOLUTION OD SCH ×2 (08:40→20:51)
[2017-10-15] MEDS: POLYETHYLENE GLYCOL 3350 17 GM PACKET PO SCH (08:40)
[2017-10-15] MEDS: OxyCODONE HCL 5 MG IR TABLET PO PRN ×2 (10:14→17:09)
[2017-10-15 13:25] VITALS: BP 118/45
[2017-10-15 15:30] VITALS: BP 121/54
[2017-10-15 19:14] LABS: GLUCOMETER DEV NAME(LOC) 2WR 2E; GLUCOSE,POINT OF CARE 163 MG/DL (70-110)
[2017-10-15] MEDS: CETIRIZINE HCL 10 MG TABLET PO SCH (20:49)
[2017-10-15] MEDS: SENNA 187 MG TABLET PO SCH (20:49)
[2017-10-15] MEDS: GABAPENTIN 100 MG CAPSULE PO SCH (20:49)
[2017-10-15] MEDS: HYDROCORTISONE 1% 30 GM OINTMENT TP SCH (20:50)
[2017-10-15] MEDS: LATANOPROST 0.005% 2.5 ML OPHTHALMIC SOLUTION OU SCH (20:50)
[2017-10-15] MEDS: MELATONIN 3 MG TABLET PO SCH (20:50)
[2017-10-15] MEDS: ATORVASTATIN CALCIUM 10 MG TABLET PO SCH (20:52)
[2017-10-15 23:40] VITALS: BP 124/62
[2017-10-16 06:00] VITALS: BP 115/59
[2017-10-16] MEDS: FUROSEMIDE 40 MG TABLET PO SCH ×2 (06:18→12:44)
[2017-10-16] MEDS: FAMOTIDINE 20 MG TABLET PO SCH ×3 (06:18→21:05)
[2017-10-16] MEDS: LEVOTHYROXINE SODIUM 88 MCG TABLET PO SCH (06:19)
[2017-10-16] MEDS: ACETAMINOPHEN 500 MG TABLET PO SCH ×3 (06:19→21:04)
[2017-10-16 06:36] LABS: GLUCOMETER DEV NAME(LOC) 2WR 2E; GLUCOSE,POINT OF CARE 111 MG/DL (70-110)
[2017-10-16 07:44] VITALS: BP 119/61
[2017-10-16] MEDS: CARVEDILOL 6.25 MG TABLET PO SCH ×2 (08:55→17:27)
[2017-10-16] MEDS: DOCUSATE SODIUM 250 MG CAPSULE PO SCH ×2 (08:55→21:04)
[2017-10-16] MEDS: CALCIUM CIT/VITAMIN D3 200 MG-250 UNITS TABLET PO SCH ×2 (08:55→21:04)
[2017-10-16] MEDS: MULTIVITAMINS WITH MINERALS, THERAPEUTIC TABLET PO SCH (08:55)
[2017-10-16] MEDS: RIVAROXABAN 10 MG PO SCH (08:56)
[2017-10-16] MEDS: SPIRONOLACTONE 25 MG TABLET PO SCH (08:57)
[2017-10-16] MEDS: OMEGA-3/DHA/EPA/FISH OIL 1,000 MG CAPSULE PO SCH (08:57)
[2017-10-16] MEDS: DORZOLAMIDE HCL 2% 10 ML OPHTHALMIC SOLUTION OD SCH ×2 (08:58→21:03)
[2017-10-16] MEDS: POLYETHYLENE GLYCOL 3350 17 GM PACKET PO SCH (08:59)
[2017-10-16 12:44] LABS: GLUCOMETER DEV NAME(LOC) 2WR 2E; GLUCOSE,POINT OF CARE 110 MG/DL (70-110)
[2017-10-16 16:16] VITALS: BP 118/63
[2017-10-16 17:25] VITALS: BP 121/65
[2017-10-16 17:53] LABS: GLUCOMETER DEV NAME(LOC) 2WR 1B; GLUCOSE,POINT OF CARE 107 MG/DL (70-110)
[2017-10-16] MEDS: HYDROCORTISONE 1% 30 GM OINTMENT TP SCH (21:00)
[2017-10-16 21:02] VITALS: BP 120/59
[2017-10-16] MEDS: GABAPENTIN 100 MG CAPSULE PO SCH (21:03)
[2017-10-16] MEDS: LATANOPROST 0.005% 2.5 ML OPHTHALMIC SOLUTION OU SCH (21:04)
[2017-10-16] MEDS: ATORVASTATIN CALCIUM 10 MG TABLET PO SCH (21:04)
[2017-10-16] MEDS: MELATONIN 3 MG TABLET PO SCH (21:05)
[2017-10-16] MEDS: SENNA 187 MG TABLET PO SCH (21:05)
[2017-10-16] MEDS: CETIRIZINE HCL 10 MG TABLET PO SCH (21:05)
[2017-10-17 00:49] VITALS: BP 109/55
[2017-10-17] MEDS: ACETAMINOPHEN 500 MG TABLET PO SCH ×3 (05:43→20:41)
[2017-10-17] MEDS: LEVOTHYROXINE SODIUM 88 MCG TABLET PO SCH (05:44)
[2017-10-17] MEDS: FUROSEMIDE 40 MG TABLET PO SCH ×2 (05:44→11:38)
[2017-10-17] MEDS: FAMOTIDINE 20 MG TABLET PO SCH ×3 (05:44→20:42)
[2017-10-17 05:54] LABS: GLUCOMETER DEV NAME(LOC) 2WR 1B; GLUCOSE,POINT OF CARE 103 MG/DL (70-110)
[2017-10-17 07:23] VITALS: BP 117/55
[2017-10-17] MEDS: OMEGA-3/DHA/EPA/FISH OIL 1,000 MG CAPSULE PO SCH (08:13)
[2017-10-17] MEDS: POLYETHYLENE GLYCOL 3350 17 GM PACKET PO SCH ×2 (08:13→09:00)
[2017-10-17] MEDS: MULTIVITAMINS WITH MINERALS, THERAPEUTIC TABLET PO SCH (08:13)
[2017-10-17] MEDS: DOCUSATE SODIUM 250 MG CAPSULE PO SCH ×3 (08:13→21:00)
[2017-10-17] MEDS: RIVAROXABAN 10 MG PO SCH (08:14)
[2017-10-17] MEDS: SPIRONOLACTONE 25 MG TABLET PO SCH (08:14)
[2017-10-17] MEDS: CARVEDILOL 6.25 MG TABLET PO SCH ×2 (08:14→16:57)
[2017-10-17] MEDS: DORZOLAMIDE HCL 2% 10 ML OPHTHALMIC SOLUTION OD SCH ×2 (08:14→20:41)
[2017-10-17] MEDS: CALCIUM CIT/VITAMIN D3 200 MG-250 UNITS TABLET PO SCH ×2 (08:25→20:41)
[2017-10-17 15:23] VITALS: BP 111/55
[2017-10-17 16:56] VITALS: BP 127/54
[2017-10-17 17:49] LABS: GLUCOMETER DEV NAME(LOC) 2WR 1B; GLUCOSE,POINT OF CARE 120 MG/DL (70-110)
[2017-10-17 20:39] VITALS: BP 124/73
[2017-10-17] MEDS: LATANOPROST 0.005% 2.5 ML OPHTHALMIC SOLUTION OU SCH (20:41)
[2017-10-17] MEDS: ATORVASTATIN CALCIUM 10 MG TABLET PO SCH (20:41)
[2017-10-17] MEDS: CETIRIZINE HCL 10 MG TABLET PO SCH (20:41)
[2017-10-17] MEDS: HYDROCORTISONE 1% 30 GM OINTMENT TP SCH (20:42)
[2017-10-17] MEDS: MELATONIN 3 MG TABLET PO SCH (20:42)
[2017-10-17] MEDS: GABAPENTIN 100 MG CAPSULE PO SCH (20:42)
[2017-10-17] MEDS: SENNA 187 MG TABLET PO SCH ×2 (20:42→21:00)
[2017-10-18 01:08] VITALS: BP 122/64
[2017-10-18] MEDS: ACETAMINOPHEN 500 MG TABLET PO SCH (05:52)
[2017-10-18] MEDS: LEVOTHYROXINE SODIUM 88 MCG TABLET PO SCH (05:52)
[2017-10-18] MEDS: FUROSEMIDE 40 MG TABLET PO SCH ×2 (05:52→10:15)
[2017-10-18] MEDS: FAMOTIDINE 20 MG TABLET PO SCH (05:52)
[2017-10-18 06:42] LABS: GLUCOMETER DEV NAME(LOC) 2WR 2E; GLUCOSE,POINT OF CARE 110 MG/DL (70-110)
[2017-10-18] MEDS ORDERED: RIVA10 PO (07:16)
[2017-10-18] MEDS ORDERED: OMEG-135 PO (07:16)
[2017-10-18] MEDS ORDERED: XALA2.5OS OU (07:16)
[2017-10-18 07:17] VITALS: BP 114/55
[2017-10-18] MEDS ORDERED: HYDR28.45 TP (07:56)
[2017-10-18] MEDS: DOCUSATE SODIUM 250 MG CAPSULE PO SCH (08:35)
[2017-10-18] MEDS: CALCIUM CIT/VITAMIN D3 200 MG-250 UNITS TABLET PO SCH (08:35)
[2017-10-18] MEDS: CARVEDILOL 6.25 MG TABLET PO SCH (08:36)
[2017-10-18] MEDS: RIVAROXABAN 10 MG PO SCH (08:36)
[2017-10-18] MEDS: MULTIVITAMINS WITH MINERALS, THERAPEUTIC TABLET PO SCH (08:36)
[2017-10-18] MEDS: POLYETHYLENE GLYCOL 3350 17 GM PACKET PO SCH ×2 (08:36→08:44)
[2017-10-18] MEDS: OMEGA-3/DHA/EPA/FISH OIL 1,000 MG CAPSULE PO SCH (08:36)
[2017-10-18] MEDS: DORZOLAMIDE HCL 2% 10 ML OPHTHALMIC SOLUTION OD SCH (08:36)
[2017-10-18] MEDS: SPIRONOLACTONE 25 MG TABLET PO SCH (08:36)
== END 2017-10-18 10:55 | disposition home health service (06) | DRG 553 ==
LOC: 2WR 17:40
PROVIDERS: ADMIT Physical Medicine & Rehabilitation; ATTEND Physical Medicine & Rehabilitation
DX: M16.11 Unilateral primary osteoarthritis, right hip (principal); E43 Unspecified severe protein-calorie malnutrition; I13.0 Hypertensive heart and chronic kidney disease with heart failure and stage 1 through stage 4 chronic kidney disease, or unspecified chronic kidney disease; Z96.641 Presence of right artificial hip joint; E03.9 Hypothyroidism, unspecified; E11.40 Type 2 diabetes mellitus with diabetic neuropathy, unspecified; E78.5 Hyperlipidemia, unspecified; H35.30 Unspecified macular degeneration; H40.9 Unspecified glaucoma; N18.3 Chronic kidney disease, stage 3 (moderate); E11.22 Type 2 diabetes mellitus with diabetic chronic kidney disease; I25.10 Atherosclerotic heart disease of native coronary artery without angina pectoris; F43.22 Adjustment disorder with anxiety; E83.51 Hypocalcemia; G47.33 Obstructive sleep apnea (adult) (pediatric); I50.9 Heart failure, unspecified; K59.00 Constipation, unspecified; H91.93 Unspecified hearing loss, bilateral; Z85.3 Personal history of malignant neoplasm of breast; D64.9 Anemia, unspecified; Z90.710 Acquired absence of both cervix and uterus; Z95.0 Presence of cardiac pacemaker; Z98.41 Cataract extraction status, right eye; Z98.42 Cataract extraction status, left eye; Z90.722 Acquired absence of ovaries, bilateral; Z90.11 Acquired absence of right breast and nipple; Z68.26 Body mass index [BMI] 26.0-26.9, adult; Z97.4 Presence of external hearing-aid; Z88.1 Allergy status to other antibiotic agents; Z88.8 Allergy status to other drugs, medicaments and biological substances
CPT/HCPCS: 84443; 87081; 97110; 97116; 97163; 97166; 97530; 97535; 99366